=== PATIENT | male | born 1995 | race Caucasian/White ===

== ENCOUNTER 2017-09-25 17:17 | Emergency (ER) | payer OTHER ==
[~2017-09-25] VITALS: Ht 175.3 cm; Wt 75.0 kg
[2017-09-25 17:23] VITALS: TEMP 97.8
[2017-09-25] MEDS ORDERED: PROAIR HFA0.09 MG/AC IH (17:27)
[2017-09-25 19:54] LABS: BASO # 0.1 (0.0-0.2); EOS # 0.2 (0.0-0.7); EOS % 2.5 % (0-4.0); GRAN # 6.1 (1.4-6.5); GRAN % 73.3 % (42.2-75.2); HEMATOCRIT 49.2 % (42.0-52.0); HEMOGLOBIN 16.9 g/dl (13.5-18.0); LYMPH # 1.4 (1.2-3.4); LYMPH % 16.8 % (20.0-51.0); MEAN CELL VOLUME 88 fl (80.0-100.0); MEAN CORPUSCULAR HEMOGLOBIN 30 pg (27.0-31.0); MEAN CORPUSCULAR HGB CONC 34 g/dl (33.0-37.0); MEAN PLATELET VOLUME 10.1 fl (7.4-10.4); MONO # 0.5 (0.1-0.6); MONO % 6.2 % (1.7-9.3); PLATELET COUNT 257 K/mm3 (130-400); RED BLOOD COUNT 5.59 M/mm3 (4.20-5.60); WHITE BLOOD COUNT 8.3 K/mm3 (4.8-10.8)
[2017-09-25 20:06] LABS: ADJUSTED CALCIUM 8.6 mg/dL (8.4-10.2); ALANINE AMINOTRANSFERASE 40 U/L (21-72); ALBUMIN 4.7 gm/dL (3.5-5.0); ALKALINE PHOSPHATASE 66 U/L (50-136); ANION GAP 13 mmol/L (7-16); BILIRUBIN,TOTAL 0.5 mg/dL (0.0-1.0); BLOOD UREA NITROGEN 14 mg/dL (9-20); C-REACTIVE PROTEIN < 0.5 mg/dL (0.0-0.9); CALCIUM 9.2 mg/dL (8.4-10.2); CARBON DIOXIDE 23 mmol/L (22-30); CHLORIDE 103 mmol/L (98-107); CREATININE, serum 0.81 mg/dL (0.66-1.25); GLUCOSE 89 mg/dL (74-106); LIPASE 73 U/L (23-300); SODIUM 139 mmol/L (137-145); TOTAL PROTEIN 7.3 gm/dL (6.4-8.2)
[2017-09-25 20:26] VITALS: BP 127/76; PULSE 79
== END 2017-09-25 20:27 | disposition home or self-care (01) ==
LOC: COL.ER 17:17
PROVIDERS: Emergency Medicine
DX: K62.89 Other specified diseases of anus and rectum (principal)
CPT/HCPCS: J7030